=== PATIENT | male | born 1965 | race African-American/Black ===

== ENCOUNTER 2017-05-12 00:35 | Emergency (ER) | payer MEDICAID ==
[~2017-05-12] VITALS: Ht 182.9 cm; Wt 104.0 kg
[2017-05-12] MEDS ORDERED: DIAZEPAM 5 MG TABLET PO ONE (05:30)
[2017-05-12] MEDS ORDERED: KETOROLAC 60MG/2ML VIAL IM ONE (05:30)
[2017-05-12 06:10] VITALS: BP 224/111
== END 2017-05-12 06:12 | disposition home or self-care (01) ==
LOC: ER 00:35
DX: M54.5 Low back pain (principal); I10 Essential (primary) hypertension
CPT/HCPCS: 70450; 96372; 99284; J1885